=== PATIENT | female | born 1930 | race Caucasian/White ===

== ENCOUNTER → 2016-10-06 | Outpatient (CLI) | payer MEDICARE, BC ==
[2016-10-06 08:52] LABS: Basophils # (A) 0.1 k/uL (0-0.2); Basophils % (A) 1 %; CH 28.2; CHCM 32.8; Eosinophils # (A) 0.3 k/uL (0-0.7); Eosinophils % (A) 4 %; HCT 45.3 % (34.0-46.0); HDW 2.38; Luc # (Auto) 0.16; Luc % (Auto) 2; Lymphocytes # (A) 2.5 k/uL (1.0-4.8); Lymphocytes % (A) 37 %; MCH 28.6 pg (25.0-35.0); MCHC 33.1 g/dL (31.0-37.0); MCV 86.5 fL (80.0-100.0); Mean Platelet Volume 6.7; Monocytes # (A) 0.3 k/uL (0-1.0); Monocytes % (A) 4 %; Neutrophils # (A) 3.5 k/uL (1.3-7.7); Neutrophils % (A) 51 %; RBC 5.24 m/uL (3.80-5.40); RDW 12.7 % (11.5-15.5); WBC 6.9 k/uL (3.8-10.6); WBC (Perox) 7.02
[2016-10-06 09:15] LABS: ALT 19 U/L (9-52); AST 21 U/L (14-36); Alkaline Phosphatase 63 U/L (38-126); Anion Gap 8 mmol/L; Blood Urea Nitrogen 18 mg/dL (7-17); Calcium 9.3 mg/dL (8.4-10.2); Carbon Dioxide 29 mmol/L (22-30); Chloride 104 mmol/L (98-107); Cholesterol 194 mg/dL (<200); Glucose 83 mg/dL (74-99); HDL Cholesterol 78 mg/dL (40-60); Non-African American GFR(MDRD) >60 (>60 ml/min/1.73 sqM); Potassium 4.1 mmol/L (3.5-5.1); Sodium 141 mmol/L (137-145); Total Bilirubin 0.5 mg/dL (0.2-1.3); Total Protein 6.7 g/dL (6.3-8.2); Triglycerides 90 mg/dL (<150)
== END | disposition home or self-care (01) ==
LOC: LABWHC1 08:31
PROVIDERS: ATTEND Internal Medicine
DX: E78.5 Hyperlipidemia, unspecified (principal)
CPT/HCPCS: 36415; 80053; 80061; 84439; 84443; 85025

== ENCOUNTER → 2017-03-18 | Outpatient (CLI) | payer MEDICARE, BC ==
[2017-03-18 15:51] LABS: Basophils % (A) 0 %; Eosinophils # (A) 0.2 k/uL (0-0.7); Eosinophils % (A) 2 %; HCT 47.5 % (34.0-46.0); Lymphocytes # (A) 2.5 k/uL (1.0-4.8); Lymphocytes % (A) 20 %; MCH 28.1 pg (25.0-35.0); MCHC 31.6 g/dL (31.0-37.0); Mean Platelet Volume 7.2; Monocytes # (A) 0.6 k/uL (0-1.0); Monocytes % (A) 5 %; Neutrophils # (A) 9.1 k/uL (1.3-7.7); Neutrophils % (A) 72 %; Platelet Count 313 k/uL (150-450); RBC 5.34 m/uL (3.80-5.40); RDW 13.2 % (11.5-15.5); WBC 12.6 k/uL (3.8-10.6)
[2017-03-18 16:02] LABS: ALT 20 U/L (9-52); AST 28 U/L (14-36); Alkaline Phosphatase 63 U/L (38-126); Anion Gap 11 mmol/L; Blood Urea Nitrogen 24 mg/dL (7-17); Calcium 9.6 mg/dL (8.4-10.2); Carbon Dioxide 28 mmol/L (22-30); Chloride 100 mmol/L (98-107); Glucose 86 mg/dL (74-99); Sodium 139 mmol/L (137-145); Total Bilirubin 0.9 mg/dL (0.2-1.3); Total Protein 7.4 g/dL (6.3-8.2)
[2017-03-18 16:18] LABS: T4, Free (Free Thyroxine) 1.08 ng/dL (0.78-2.19)
[2017-03-18 16:35] LABS: Potassium 5.6 mmol/L (3.5-5.1)
[2017-03-18 16:48] LABS: Erythrocyte Sedimentation Rate 11 mm/hr (0-20)
== END | disposition home or self-care (01) ==
LOC: LABWHC1 14:57
PROVIDERS: ATTEND Internal Medicine
DX: R53.1 Weakness (principal)
CPT/HCPCS: 36415; 80053; 82607; 84439; 84443; 85025; 85652; 99214

== ENCOUNTER → 2017-03-23 | Outpatient (CLI) | payer MEDICARE, BC ==
--- NOTE | 2017-03-23 08:30 | CT ---
EXAMINATION TYPE: CT chest wo con DATE OF EXAM: 03/23/2017 COMPARISON: High-resolution CT o chest April 21, 2012. Older chest CT May 12, 2010.. Most recent x -ray March 18, 2017 HISTORY: Right lower lobe pneumonia per order. Abnormal x-ray CT DLP: 592.30 mGycm. Automated Exposure Control for Dose Reduction was Utilized. TECHNIQUE: CT scan of the thorax is performed without IV contrast. High-resolution protocol with 1 m m sequences obtained at 10 mm intervals in supine and prone technique. FINDINGS: LUNGS: Some patchy reticulonodular fibrosis and/or less likely infiltrate with mild bronchiectasis in volving the inferior right middle lobe and inferior right lower lobe. There is less prominent but add itional reticular and reticulonodular fibrosis and/or less likely infiltrates in the periphery of the left lung base. Mild bronchiectasis centrally is also present at this level. Overall no significant progression from April 2012 study. No pleural effusion or pneumothorax is seen bilaterally. Upper lungs are clear. Scattered small subce ntimeter nodules are felt present. Evaluation for subcentimeter nodules is suboptimal due to techniqu e. MEDIASTINUM: Lack of IV contrast is noted to limit evaluation for mediastinal and especially hilar ad enopathy. There are no definitive greater than 1 cm hilar or mediastinal lymph nodes. No cardiomega ly or pericardial effusion is seen. OTHER: A moderate size hiatal hernia is redemonstrated. IMPRESSION: Right greater than left bibasilar findings are not significantly changed from 2013 CT. Fa vor product of chronic aspiration or remote atypical infection. No convincing evidence for acute pulm onary process currently.
== END | disposition home or self-care (01) ==
LOC: RADCTMAIN 07:07
PROVIDERS: ATTEND Internal Medicine
DX: J18.1 Lobar pneumonia, unspecified organism (principal); J47.1 Bronchiectasis with (acute) exacerbation; Z88.0 Allergy status to penicillin
CPT/HCPCS: 71250

== ENCOUNTER 2018-03-07 14:05 | Observation (INO) | payer MEDICARE, BC ==
[2018-03-07 14:15] LABS: Glucose,Whole Blood 82 mg/dL (75-99)
[2018-03-07] MEDS ORDERED: SODIUM CHLORIDE 0.9% 500 ML 500 ML IV STA (14:18)
--- NOTE | 2018-03-07 14:22 | ED ---
General Adult HPI - General Stated complaint: poss cva Time Seen by Provider: 03/07/18 14:08 - History of Present Illness Initial comments: 87-year-old female patient with past medical history significant for intracranial hemorrhage, hypertension and presents to the emergency department today for evaluation of slurred speech and right-sided facial droop. Patient states that she was interacting with her family when suddenly her speech became slurred, the right side of her tongue became numb, and family members reported that her face was drooping. This occurred at 1345 He states this lasted for one to 2 minutes only and then resolved. Patient states she is currently feeling asymptomatic. She has no headache, blurred vision, double vision, dizziness, weakness. Patient states that her extremities did feel weak during the episode. States that she has been sick with upper respiratory symptoms for the last couple of weeks. States she has had a productive cough. She denies any shortness of breath or chest pain with this. She denies any fevers or chills. Patient denies any recent rash, abdominal pain, nausea, vomiting, diarrhea, constipation, back pain, hematuria, dysuria, urinary urgency, urinary frequency , or any other complaints. - Related Data Home Medications Medication Instructions Recorded Confirmed Aspirin 81 mg PO HS 04/11/17 03/07/18 Biotin 5 mg PO HS 04/11/17 03/07/18 PARoxetine [Paxil] 20 mg PO HS 04/11/17 03/07/18 Losartan Potassium 50 mg PO HS 03/07/18 03/07/18 Allergies Allergy/AdvReac Type Severity Reaction Status Date / Time doxycycline Allergy Anaphylaxis Verified 03/07/18 14:41 Penicillins Allergy Swelling Verified 03/07/18 14:41 Review of Systems ROS Statement: Those systems with pertinent positive or pertinent negative responses have been documented in the HPI. ROS Other: All systems not noted in ROS Statement are negative. Past Medical History Past Medical History: Cancer, Hypertension, Pneumonia Additional Past Medical History / Comment(s): repeated pneumonia,hiatal hernia, steroids Mar 2017,diverticulitis,melanoma History of Any Multi-Drug Resistant Organisms: None Reported Past Surgical History: Bowel Resection, Cholecystectomy, Hysterectomy Additional Past Surgical History / Comment(s): brain bleed repair,rt mastoidectomy-r/t repeated ear infections Past Anesthesia/Blood Transfusion Reactions: No Reported Reaction Past Psychological History: Anxiety Smoking Status: Former smoker Past Alcohol Use History: None Reported Additional Past Alcohol Use History / Comment(s): quit smoking 1979,smoked approx 40 yrs 1ppd Past Drug Use History: None Reported General Exam General appearance: alert, in no apparent distress, other (Physical well- developed, well-nourished elderly female patient in no acute distress.) Eye exam: Present: normal appearance, PERRL, EOMI. Absent: scleral icterus, conjunctival injection, nystagmus, periorbital swelling ENT exam: Present: normal exam, normal oropharynx, mucous membranes moist Respiratory exam: Present: normal lung sounds bilaterally. Absent: respiratory distress, wheezes, rales, rhonchi, stridor Cardiovascular Exam: Present: regular rate, normal rhythm, normal heart sounds. Absent: systolic murmur, diastolic murmur, rubs, gallop, clicks GI/Abdominal exam: Present: soft, normal bowel sounds. Absent: distended, tenderness, guarding, rebound, rigid Neurological exam: Present: alert, oriented X3, CN II-XII intact Expanded Speech: Present: fluid speech Cranial nerves: EOM's Intact: Normal, Tongue Deviation: Normal, Nystagmus: Normal Upper motor neuron: Pronator Drift: Normal Motor strength exam: RUE: 5, LUE: 5, RLE: 5, LLE: 5 Eye Response: (4) open spontaneously Motor Response: (6) obeys commands Verbal Response: (5) oriented [place] Total: 15 Psychiatric exam: Present: normal affect, normal mood Skin exam: Present: warm, dry, intact, normal color. Absent: rash Course Vital Signs 03/07/18 03/07/18 03/07/18 14:07 14:08 14:30 Temperature 98.2 F Pulse Rate 88 85 80 Respiratory 18 18 18 Rate Blood Pressure 170/105 170/105 170/105 O2 Sat by Pulse 95 96 97 Oximetry 03/07/18 03/07/18 15:00 15:30 Temperature Pulse Rate 80 74 Respiratory 19 18 Rate Blood Pressure 163/73 151/73 O2 Sat by Pulse 96 97 Oximetry EKG Findings - EKG Comments: EKG Findings:: EKG obtained at 1412 shows normal sinus rhythm with a ventricular rate of 88, CA interval 140, QRS duration 80, QT 360, QTC 435. No evidence of ST elevation or depression. Medical Decision Making - Medical Decision Making 87-year-old female patient presented to the emergency department today after having an episode of right-sided facial droop, slurred speech, and right-sided tongue numbness. Physical examination upon arrival was unremarkable. Patient is neurologically intact with no focal deficits. Labs reviewed and are unremarkable. EKG showed normal sinus rhythm. CT brain was negative for any evidence of acute intracranial abnormality. Did discuss findings and results with the patient. Given symptoms concerning for transient ischemic attack will admit for further evaluation and consultation with cardiology. Patient verbalizes understanding and agrees with this plan. - Lab Data Result diagrams: 03/07/18 14:21 03/07/18 14:21 Lab Results 03/07/18 03/07/18 03/07/18 Range/Units 14:14 14:21 14:21 WBC 6.4 (3.8-10.6) k/uL RBC 5.11 (3.80-5.40) m/uL Hgb 14.3 (11.4-16.0) gm/dL Hct 43.5 (34.0-46.0) % MCV 85.2 (80.0-100.0) fL MCH 27.9 (25.0-35.0) pg MCHC 32.8 (31.0-37.0) g/dL RDW 13.7 (11.5-15.5) % Plt Count 265 (150-450) k/uL Neutrophils % 55 % Lymphocytes % 34 % Monocytes % 6 % Eosinophils % 3 % Basophils % 1 % Neutrophils # 3.5 (1.3-7.7) k/uL Lymphocytes # 2.2 (1.0-4.8) k/uL Monocytes # 0.4 (0-1.0) k/uL Eosinophils # 0.2 (0-0.7) k/uL Basophils # 0.1 (0-0.2) k/uL PT (9.0-12.0) sec INR (<1.2) APTT (22.0-30.0) sec Sodium (137-145) mmol/L Potassium (3.5-5.1) mmol/L Chloride (98-107) mmol/L Carbon Dioxide (22-30) mmol/L Anion Gap mmol/L BUN (7-17) mg/dL Creatinine (0.52-1.04) mg/dL Est GFR (CKD-EPI)AfAm (>60 ml/min/1.73 sqM) Est GFR (CKD-EPI)NonAf (>60 ml/min/1.73 sqM) Glucose (74-99) mg/dL POC Glucose (mg/dL) 82 (75-99) mg/dL POC Glu Model Builder Display Hina Wallace Calcium (8.4-10.2) mg/dL Total Bilirubin (0.2-1.3) mg/dL AST (14-36) U/L ALT (9-52) U/L Alkaline Phosphatase (38-126) U/L Total Creatine Kinase 32 (30-135) U/L CK-MB (CK-2) 0.3 (0.0-2.4) ng/mL CK-MB (CK-2) Rel Index 0.9 Troponin I <0.012 (0.000-0.034) ng/mL Total Protein (6.3-8.2) g/dL Albumin (3.5-5.0) g/dL 03/07/18 03/07/18 Range/Units 14:21 15:05 WBC (3.8-10.6) k/uL RBC (3.80-5.40) m/uL Hgb (11.4-16.0) gm/dL Hct (34.0-46.0) % MCV (80.0-100.0) fL MCH (25.0-35.0) pg MCHC (31.0-37.0) g/dL RDW (11.5-15.5) % Plt Count (150-450) k/uL Neutrophils % % Lymphocytes % % Monocytes % % Eosinophils % % Basophils % % Neutrophils # (1.3-7.7) k/uL Lymphocytes # (1.0-4.8) k/uL Monocytes # (0-1.0) k/uL Eosinophils # (0-0.7) k/uL Basophils # (0-0.2) k/uL PT 9.8 (9.0-12.0) sec INR 0.9 (<1.2) APTT 20.9 L (22.0-30.0) sec Sodium 140 (137-145) mmol/L Potassium 4.2 (3.5-5.1) mmol/L Chloride 103 (98-107) mmol/L Carbon Dioxide 29 (22-30) mmol/L Anion Gap 8 mmol/L BUN 13 (7-17) mg/dL Creatinine 0.90 (0.52-1.04) mg/dL Est GFR (CKD-EPI)AfAm 67 (>60 ml/min/1.73 sqM) Est GFR (CKD-EPI)NonAf 58 (>60 ml/min/1.73 sqM) Glucose 93 (74-99) mg/dL POC Glucose (mg/dL) (75-99) mg/dL POC Glu Model Builder Display ID Calcium 9.5 (8.4-10.2) mg/dL Total Bilirubin 0.5 (0.2-1.3) mg/dL AST 22 (14-36) U/L ALT 16 (9-52) U/L Alkaline Phosphatase 70 (38-126) U/L Total Creatine Kinase (30-135) U/L CK-MB (CK-2) (0.0-2.4) ng/mL CK-MB (CK-2) Rel Index Troponin I (0.000-0.034) ng/mL Total Protein 7.0 (6.3-8.2) g/dL Albumin 3.9 (3.5-5.0) g/dL - Radiology Data Radiology results: report reviewed, image reviewed Two-view x-ray of the chest is obtained. Report was reviewed in its entirety. Impression by Dr. Tee shows lingula and right middle lobe pleural pulmonary scarring without change compared to old exam. Normal heart. CT brain without contrast was obtained. Report reviewed in its entirety. Impression by Dr. Tee shows cerebral atrophy. No acute intracranial abdomen. No change. Disposition Clinical Impression: TIA (transient ischemic attack) Disposition: ADMITTED IP TO THIS [facility] Condition: Serious Referrals: Romel Otto MD [STAFF PHYSICIAN] - 1-2 days Decision to Admit Reason: Admit from EC Decision Date: 03/07/18 Decision Time: 16:00
[2018-03-07 14:34] LABS: Basophils # (A) 0.1 k/uL (0-0.2); Basophils % (A) 1 %; Eosinophils # (A) 0.2 k/uL (0-0.7); Eosinophils % (A) 3 %; HCT 43.5 % (34.0-46.0); HGB 14.3 gm/dL (11.4-16.0); Lymphocytes # (A) 2.2 k/uL (1.0-4.8); Lymphocytes % (A) 34 %; MCH 27.9 pg (25.0-35.0); MCHC 32.8 g/dL (31.0-37.0); MCV 85.2 fL (80.0-100.0); Mean Platelet Volume 7.1; Monocytes # (A) 0.4 k/uL (0-1.0); Monocytes % (A) 6 %; Neutrophils # (A) 3.5 k/uL (1.3-7.7); Neutrophils % (A) 55 %; Platelet Count 265 k/uL (150-450); RBC 5.11 m/uL (3.80-5.40); RDW 13.7 % (11.5-15.5); WBC 6.4 k/uL (3.8-10.6)
[2018-03-07 14:42] LABS: Albumin 3.9 g/dL (3.5-5.0); Calcium 9.5 mg/dL (8.4-10.2); Potassium 4.2 mmol/L (3.5-5.1); Total Bilirubin 0.5 mg/dL (0.2-1.3)
[2018-03-07 14:56] LABS: Creatine Kinase 32 U/L (30-135)
--- NOTE | 2018-03-07 14:56 | CT ---
EXAMINATION TYPE: CT brain wo con for TPA DATE OF EXAM: 03/07/2018 COMPARISON: April 17, 2013 HISTORY: Right sided tounge numbness CT DLP: 1079.4 mGycm Automated exposure control for dose reduction was used. FINDINGS: There is cerebral cortical atrophy. There is no mass effect nor midline shift. There is no sign of in tracranial hemorrhage. The calvarium is intact. IMPRESSION: CEREBRAL ATROPHY. NO ACUTE INTRACRANIAL ABNORMALITY. NO CHANGE.
--- NOTE | 2018-03-07 15:00 | XR ---
EXAMINATION TYPE: XR chest 2V DATE OF EXAM: 03/07/2018 COMPARISON: 02/10/2018 HISTORY: Weakness TECHNIQUE: Frontal and lateral views of the chest are obtained. FINDINGS: There is no heart failure. Heart size is normal. There is no pleural effusion. There is so me pleural thickening involving the lingula left upper lobe and the right middle lobe anteriorly. Bon y thorax is intact. There is osteopenia. There are chest leads. IMPRESSION: Lingula and right middle lobe pleural and pulmonary scarring without change compared to old exam. Normal heart.
[2018-03-07 15:09] LABS: Creatine Kinase MB 0.3 ng/mL (0.0-2.4); Troponin I <0.012 ng/mL (0.000-0.034)
[2018-03-07 15:33] LABS: INR 0.9 (<1.2); Partial Thromboplastin Time 20.9 sec (22.0-30.0); Prothrombin Time 9.8 sec (9.0-12.0)
[2018-03-07] MEDS ORDERED: ASPIRIN 325 MG TAB PO STA (15:52)
[2018-03-07 15:58] LABS: Appearance,Urine Clear (Clear); Bacteria,Urine Rare /hpf; Bilirubin,Urine Negative (Negative); Blood,Urine Negative (Negative); Color,Urine Yellow; Glucose,Urine (UA) Negative (Negative); Ketones,Urine Negative (Negative); Leukocyte Esterase,Urine Trace (Negative); Mucus,Urine Rare /hpf; Nitrite,Urine Negative (Negative); Protein,Urine Negative (Negative); Specific Gravity,Urine 1.006 (1.001-1.035); Urobilinogen,Urine <2.0 mg/dL (<2.0); WBC,Urine 2 /hpf (0-5)
[2018-03-07] MEDS: SODIUM CHLORIDE 0.9% 1,000 ML IV SCH (16:05)
[2018-03-07] MEDS ORDERED: LOSARTAN 50 MG TAB PO STA (18:52)
[2018-03-07] MEDS: ENALAPRILAT 1.25 MG/ML 1 ML VIAL IVP PRN (18:59)
[2018-03-07 20:09] VITALS: BMI 29.0
[2018-03-07] MEDS: LOSARTAN 50 MG TAB PO SCH (21:06)
--- NOTE | 2018-03-07 21:22 | P.CNNES ---
History of Present Illness Consult date: 03/07/18 History of Present Illness: The patient is a 87-year-old woman who was in her usual state of health until this afternoon around 1 PM while opening gets with her grandchildren she experienced slurred speech as well as tongue numbness on the right side of her tongue as well as right facial droop. This all lasted about 1 minute. She denied any focal weakness in the arms and legs, or any visual changes. She states she is just gotten over upper respiratory infection and is felt fatigued and tired since then. The patient was admitted to the hospital for TIA. He had a CAT scan of the brain which showed cerebral atrophy. Review of Systems All systems: negative Constitutional: Denies chills, Denies fever Eyes: denies blurred vision, denies pain Cardiovascular: Denies chest pain, Denies shortness of breath Respiratory: Denies cough Gastrointestinal: Denies abdominal pain, Denies diarrhea, Denies nausea, Denies vomiting Musculoskeletal: Denies myalgias Neurological: Denies numbness, Denies weakness Psychiatric: Denies anxiety, Denies depression Past Medical History Past Medical History: Cancer, Hypertension, Pneumonia Additional Past Medical History / Comment(s): repeated pneumonia,hiatal hernia, steroids Mar 2017,diverticulitis,melanoma History of Any Multi-Drug Resistant Organisms: None Reported Past Surgical History: Bowel Resection, Cholecystectomy, Hysterectomy Additional Past Surgical History / Comment(s): brain bleed repair,rt mastoidectomy-r/t repeated ear infections Past Anesthesia/Blood Transfusion Reactions: No Reported Reaction Past Psychological History: Anxiety Smoking Status: Former smoker Past Alcohol Use History: None Reported Additional Past Alcohol Use History / Comment(s): quit smoking 1979,smoked approx 40 yrs 1ppd Past Drug Use History: None Reported Medications and Allergies Home Medications Medication Instructions Recorded Confirmed Type Aspirin 81 mg PO HS 04/11/17 03/07/18 History Biotin 5 mg PO HS 04/11/17 03/07/18 History PARoxetine [Paxil] 20 mg PO HS 04/11/17 03/07/18 History Losartan Potassium 50 mg PO HS 03/07/18 03/07/18 History Allergies Allergy/AdvReac Type Severity Reaction Status Date / Time doxycycline Allergy Anaphylaxis Verified 03/07/18 14:41 Penicillins Allergy Swelling Verified 03/07/18 14:41 Physical Examination - Vital Signs Vital Signs: Vital Signs Temp Pulse Pulse Resp BP BP Pulse Ox 03/07/18 20:00 98.5 F 88 15 228/101 95 03/07/18 19:05 98.4 F 85 18 187/95 97 03/07/18 18:30 86 18 181/92 97 03/07/18 18:00 75 19 177/88 03/07/18 17:30 88 18 168/77 96 03/07/18 17:00 79 18 172/77 96 03/07/18 16:30 76 18 171/85 97 03/07/18 16:00 82 18 166/86 96 03/07/18 15:30 74 18 151/73 97 03/07/18 15:00 80 19 163/73 96 03/07/18 14:30 80 18 170/105 97 03/07/18 14:08 85 18 170/105 96 03/07/18 14:07 98.2 F 88 18 170/105 95 Intake and Output 03/07/18 03/07/18 03/07/18 06:59 14:59 22:59 Other: Weight 81.647 kg 84.141 kg - Constitutional General appearance: average body habitus, cooperative - EENT EENT: PERRL - Respiratory Respiratory: lungs clear - Cardiovascular Cardiovascular: regular rate, normal S1, normal S2 - Neurologic Neurologic examination: Mental status: She was awake alert and oriented 3. Her speech is fluent. There was no a aphasia or dysarthria. Cranial nerve examination: Cranial nerves II through XII grossly intact Motor examination: 5 out of 5 throughout Sensory examination: Intact Deep tendon reflexes: Intact X Coordination: Finger to nose intact Gait: Not tested Results - Laboratory Findings CBC and BMP: 03/07/18 14:21 03/07/18 14:21 Abnormal Lab Findings: Abnormal Labs 03/07/18 03/07/18 15:05 15:25 APTT 20.9 L Ur Leukocyte Esterase Trace H Urine Bacteria Rare H Urine Mucus Rare H Assessment and Plan (1) TIA (transient ischemic attack) Current Visit: Yes Status: Acute Code(s): G45.9 - TRANSIENT CEREBRAL ISCHEMIC ATTACK, UNSPECIFIED SNOMED Code(s): 775330645 Plan: The patient is a 87-year-old woman who presents to the emergency room with slurred speech and right facial droop which lasted for less than a minute. She also experienced tongue numbness. The patient may have had a TIA. She has been taking her baby aspirin daily. Recommend further evaluation with carotid ultrasound and echocardiogram. Recommend Plavix in addition to baby aspirin. The patient had a CAT scan of the brain in the emergency room which showed atrophy.
[2018-03-07] MEDS: PARoxetine 20 MG TAB PO SCH (22:21)
[2018-03-08] MEDS: ENALAPRILAT 1.25 MG/ML 1 ML VIAL IVP PRN (00:57)
[2018-03-08 07:12] LABS: Cholesterol 243 mg/dL (<200); HDL Cholesterol 54 mg/dL (40-60); LDL Cholesterol,Calculated 171 mg/dL (0-99); Triglycerides 92 mg/dL (<150)
[2018-03-08] MEDS: PARoxetine 20 MG TAB PO SCH (08:08)
[2018-03-08] MEDS: SODIUM CHLORIDE 0.9% 1,000 ML IV SCH (08:08)
[2018-03-08] MEDS: LOSARTAN 50 MG TAB PO SCH (08:08)
--- NOTE | 2018-03-08 08:47 | US ---
EXAMINATION TYPE: US carotid duplex BILAT DATE OF EXAM: 03/08/2018 COMPARISON: Carotid ultrasound 2010 CLINICAL HISTORY: TIA. Admitted for neuro deficits yesterday. EXAM MEASUREMENTS: RIGHT: Peak Systolic Velocity (PSV) cm/sec ----- Right CCA: 70.5 ----- Right ICA: 103.7 ----- Right ECA: 85.1 ICA/CCA ratio: 1.5 RIGHT: End Diastole cm/sec ----- Right CCA: 19.1 ----- Right ICA: 26.5 ----- Right ECA: 0.0 LEFT: Peak Systolic Velocity (PSV) cm/sec ----- Left CCA: 61.4 ----- Left ICA: 203.5 ----- Left ECA: 162.0 ICA/CCA ratio: 3.3 LEFT: End Diastole cm/sec ----- Left CCA: 14.2 ----- Left ICA: 40.9 ----- Left ECA: 29.6 VERTEBRALS (direction of flow): Right Vertebral: Antegrade Left Vertebral: Antegrade Rhythm: Normal Grayscale images show moderate eccentric hyperechoic plaque at right carotid bulbs similar to prior. There is more severe eccentric hyperechoic plaque at left carotid bulb on current study with increase d peak systolic and end-diastolic velocity in the left internal carotid artery, abnormal ratio is not ed. IMPRESSION: Moderate to severe. Atherosclerotic change bilaterally, left greater than right, with he mostatically significant stenosis now suspected on the left, degree of stenosis is estimated 50-69%. Further investigation with CTA or MRA of the neck to be performed to further evaluate and characteriz e . Criteria for Assigning % of Stenosis / Diameter reduction (Estimation based on the indirect measurements of the internal carotid artery velocities (ICA PSV). 1. Normal (no stenosis)=ICA PSV < 125 cm/s: ratio < 2.0: ICA EDV<40 cm/s. 2. Less than 50% stenosis=ICA PSV < 125 cm/s: ratio < 2.0: ICA EDV<40 cm/s. 3. 50 to 69% stenosis=ICA PSV of 125 to 230 cm/s: ration 2.0 ? 4.0: ICA EDV 40-100 cm/s. 4. Greater than 70% stenosis to near occlusion= ICA PSV > 230 cm/s: ratio > 4.0: ICA EDV > 100 cm/s. 5. Near occlusion= ICA PSV velocities may be low or undetectable: variable ratio and ICA EDV. 6. Total occlusion=unable to detect flow.
[2018-03-08] MEDS ORDERED: ASPIRIN 325 MG TAB PO SCH (09:00)
[2018-03-08] MEDS ORDERED: CLOPIDOGREL 75 MG TAB PO SCH (09:00)
[2018-03-08 10:06] VITALS: TEMP 97.6
--- NOTE | 2018-03-08 10:22 | ECHOF ---
Referral Reason:TIA MEASUREMENTS -------- HEIGHT: 170.2 cm WEIGHT: 83.0 kg BP: 152/70 IVSd: 1.2 cm (0.6 - 1.1) LVIDd: 2.7 cm (3.9 - 5.3) LVPWd: 1.4 cm (0.6 - 1.1) IVSs: 1.6 cm LVIDs: 1.7 cm LVPWs: 1.7 cm LAESV Index (A-L): 24.14 ml/m Ao Diam: 3.0 cm (2.0 - 3.7) AV Cusp: 1.4 cm (1.5 - 2.6) LA Diam: 3.4 cm (2.7 - 3.8) MV EXCURSION: 12.842 mm (> 18.000) MV EF SLOPE: 73 mm/s (70 - 150) EPSS: 0.5 cm MV E Josh: 0.99 m/s MV DecT: 189 ms MV A Josh: 1.14 m/s MV E/A Ratio: 0.86 RAP: 5.00 mmHg RVSP: 11.51 mmHg FINDINGS -------- Sinus rhythm. This was a technically good study. The left ventricular size is normal. There is mild concentric left ventricular hypertrophy. Overa ll left ventricular systolic function is normal with, an EF between 55 - 60 %. The right ventricle is normal in size and function. The left atrium is normal in size. The right atrium is normal in size. The aortic valve is trileaflet and appears structurally normal. The mitral valve leaflets are mildly thickened. There is trace mitral regurgitation. Trace tricuspid regurgitation present. The right ventricular systolic pressure, as measured by Dopp ler, is 11.51mmHg. Pulmonic valve appears structurally normal. The aortic root size is normal. Normal inferior vena cava with normal inspiratory collapse consistent with estimated right atrial pre ssure of 5 mmHg. The pericardium is normal. CONCLUSIONS -------- 1. Sinus rhythm. 2. This was a technically good study. 3. The left ventricular size is normal. 4. There is mild concentric left ventricular hypertrophy. 5. Overall left ventricular systolic function is normal with, an EF between 55 - 60 %. 6. The right ventricle is normal in size and function. 7. The left atrium is normal in size. 8. The right atrium is normal in size. 9. The aortic valve is trileaflet and appears structurally normal. 10. The mitral valve leaflets are mildly thickened. 11. There is trace mitral regurgitation. 12. Trace tricuspid regurgitation present. 13. The right ventricular systolic pressure, as measured by Doppler, is 11.51mmHg. 14. Pulmonic valve appears structurally normal. 15. The aortic root size is normal. 16. Normal inferior vena cava with normal inspiratory collapse consistent with estimated right atrial pressure of 5 mmHg. 17. The pericardium is normal. MEDICAL TECHNICIANS: Erendira Dubose RDCS
--- NOTE | 2018-03-08 12:28 | P.HPIM ---
History of Present Illness 70-year-old female came in with complaints of a numbness in the tongue and facial droop on the right side which resolved and within a minute patient denied any headache nausea vomiting fever chills. Patient denied any visual problems or speech problems. Patient had a CAT scan of the brain which showed severe diffuse cerebellar atrophy patient is already aspirin patient was evaluated by neurology although workup for TIA and stroke stroke with an echocardiogram, carotid Doppler which did not show any significant abnormal the patient does have elevated LDL patient is supposed to take started at home which she stopped taking. Patient the will be started on Plavix as recommended by neurology and patient was started on statin patient doesn't have any residual weakness will not require any physical therapy at home or rehabilitation. Patient is not a smoker. Patient will be discharged today. Review of Systems REVIEW OF SYSTEMS: CONSTITUTIONAL: No fever, no malaise, no fatigue. HEENT: No recent visual problems or hearing problems. Denied any sore throat. CARDIOVASCULAR: No chest pain, orthopnea, PND, no palpitations, no syncope. PULMONARY: No shortness of breath, no cough, no hemoptysis. GASTROINTESTINAL: No diarrhea, no nausea, no vomiting, no abdominal pain. NEUROLOGICAL: No headaches, no weakness, no numbness. HEMATOLOGICAL: Denies any bleeding or petechiae. GENITOURINARY: Denies any burning micturition, frequency, or urgency. MUSCULOSKELETAL/RHEUMATOLOGICAL: Denies any joint pain, swelling, or any muscle pain. ENDOCRINE: Denies any polyuria or polydipsia. The rest of the 14-point review of systems is negative. Past Medical History Past Medical History: Cancer, Hypertension, Pneumonia Additional Past Medical History / Comment(s): repeated pneumonia,hiatal hernia, steroids Mar 2017,diverticulitis,melanoma History of Any Multi-Drug Resistant Organisms: None Reported Past Surgical History: Bowel Resection, Cholecystectomy, Hysterectomy Additional Past Surgical History / Comment(s): brain bleed repair,rt mastoidectomy-r/t repeated ear infections Past Anesthesia/Blood Transfusion Reactions: No Reported Reaction Past Psychological History: Anxiety Smoking Status: Former smoker Past Alcohol Use History: None Reported Additional Past Alcohol Use History / Comment(s): quit smoking 1979,smoked approx 40 yrs 1ppd Past Drug Use History: None Reported Medications and Allergies Home Medications Medication Instructions Recorded Confirmed Type Aspirin 81 mg PO HS 04/11/17 03/07/18 History Biotin 5 mg PO HS 04/11/17 03/07/18 History PARoxetine [Paxil] 20 mg PO HS 04/11/17 03/07/18 History Losartan Potassium 50 mg PO HS 03/07/18 03/07/18 History Atorvastatin [Lipitor] 40 mg PO HS #30 tablet 03/08/18 Rx Clopidogrel Bisulfate [Plavix] 75 mg PO DAILY #30 tab 03/08/18 Rx Allergies Allergy/AdvReac Type Severity Reaction Status Date / Time doxycycline Allergy Anaphylaxis Verified 03/07/18 14:41 Penicillins Allergy Swelling Verified 03/07/18 14:41 Physical Exam Vitals: Vital Signs Temp Pulse Pulse Resp BP BP Pulse Ox 03/08/18 08:00 97.6 F 78 17 162/78 97 03/08/18 06:45 98.1 F 73 14 152/70 97 03/08/18 04:52 97.2 F L 70 15 151/68 97 03/08/18 03:40 69 15 03/08/18 02:52 97.6 F 69 15 181/81 96 03/08/18 00:52 97.2 F L 69 14 170/74 93 L 03/08/18 00:00 76 15 03/07/18 22:52 98.4 F 76 15 180/79 95 03/07/18 20:00 98.5 F 88 15 228/101 95 03/07/18 19:05 98.4 F 85 18 187/95 97 03/07/18 18:30 86 18 181/92 97 03/07/18 18:00 75 19 177/88 03/07/18 17:30 88 18 168/77 96 03/07/18 17:00 79 18 172/77 96 03/07/18 16:30 76 18 171/85 97 03/07/18 16:00 82 18 166/86 96 03/07/18 15:30 74 18 151/73 97 03/07/18 15:00 80 19 163/73 96 03/07/18 14:30 80 18 170/105 97 03/07/18 14:08 85 18 170/105 96 03/07/18 14:07 98.2 F 88 18 170/105 95 Intake and Output 03/07/18 03/08/18 03/08/18 22:59 06:59 14:59 Intake Total 100 540 Balance 100 540 Intake: Intake, IV Titration 100 Amount Sodium Chloride 0.9% 1, 100 000 ml @ 20 mls/hr IV . Q24H [facility] Rx#:[id number] Oral 540 Other: # Voids 1 Weight 84.141 kg 83.3 kg PHYSICAL EXAMINATION: GENERAL: The patient is alert and oriented x3, not in any acute distress. Well developed, well nourished. HEENT: Pupils are round and equally reacting to light. EOMI. No scleral icterus. No conjunctival pallor. Normocephalic, atraumatic. No pharyngeal erythema. No thyromegaly. CARDIOVASCULAR: S1 and S2 present. No murmurs, rubs, or gallops. PULMONARY: Chest is clear to auscultation, no wheezing or crackles. ABDOMEN: Soft, nontender, nondistended, normoactive bowel sounds. No palpable organomegaly. MUSCULOSKELETAL: No joint swelling or deformity. EXTREMITIES: No cyanosis, clubbing, or pedal edema. NEUROLOGICAL: Gross neurological examination did not reveal any focal deficits. SKIN: No rashes. Results CBC & Chem 7: 03/07/18 14:21 03/07/18 14:21 Labs: Abnormal Lab Results - Last 24 Hours (Table) 03/07/18 03/07/18 03/08/18 Range/Units 15:05 15:25 05:58 APTT 20.9 L (22.0-30.0) sec Cholesterol 243 H (<200) mg/dL LDL Cholesterol, Calc 171 H (0-99) mg/dL Ur Leukocyte Esterase Trace H (Negative) Urine Bacteria Rare H (None) /hpf Urine Mucus Rare H (None) /hpf Thrombosis Risk Factor Assmnt - Choose All That Apply Any of the Below Risk Factors Present?: No Other Risk Factors: No Other congenital or acquired thrombophilia - If yes, enter type in comment: No Thrombosis Risk Factor Assessment Level: Very Low Risk Assessment and Plan Plan: -transient ischemic attack with right facial droop: Symptoms are not resolved at this time patient will be discharged as mentioned above, workup as mentioned above all the workup so far is not significant and will not need any further intervention at this time. Discussed with neurology cleared for discharge. -Hyperlipidemia -Hypertension
--- NOTE | 2018-03-08 12:29 | P.DS ---
Providers Date of admission: 03/07/18 15:49 Attending physician: Melissa Alford Consults: 03/07/18 15:53 Consult Physician Routine Consulting Provider: Suzie Cardenas Consult Reason/Comments: TIA Do you want consulting provider notified?: Yes Primary care physician: Stated None Hospital Course: Please refer to my HPI Patient Condition at Discharge: Serious Plan - Discharge Summary Discharge Rx Participant: Yes New Discharge Prescriptions: New Atorvastatin [Lipitor] 40 mg PO HS #30 tablet Clopidogrel Bisulfate [Plavix] 75 mg PO DAILY #30 tab No Action PARoxetine [Paxil] 20 mg PO HS Aspirin 81 mg PO HS Biotin 5 mg PO HS Losartan Potassium 50 mg PO HS Discharge Medication List Aspirin 81 mg PO HS 04/11/17 [History] Biotin 5 mg PO HS 04/11/17 [History] PARoxetine [Paxil] 20 mg PO HS 04/11/17 [History] Losartan Potassium 50 mg PO HS 03/07/18 [History] Atorvastatin [Lipitor] 40 mg PO HS #30 tablet 03/08/18 [Rx] Clopidogrel Bisulfate [Plavix] 75 mg PO DAILY #30 tab 03/08/18 [Rx] Follow up Appointment(s)/Referral(s): Romel Otto MD [STAFF PHYSICIAN] - 03/20/18 3:15 pm Liane Cardenas MD [STAFF PHYSICIAN] - 1 Week (Office to call back with appointment.) Patient Instructions/Handouts: Transient Ischemic Attack (DC), Heart Healthy Diet (DC), Cholesterol and Your Health (GEN), Safe Use of Antiplatelet Medication (DC) Discharge Disposition: HOME SELF-CARE
[2018-03-08 12:40] VITALS: BP 150/72; PULSE 81; RESP 18
== END 2018-03-08 13:36 | disposition home or self-care (01) ==
LOC: EC 14:05 → 3SCARD 15:49
PROVIDERS: ADMIT Internal Medicine; ATTEND Internal Medicine
DX: G45.9 Transient cerebral ischemic attack, unspecified (principal); R47.81 Slurred speech; R29.810 Facial weakness; I10 Essential (primary) hypertension; E78.5 Hyperlipidemia, unspecified; F41.9 Anxiety disorder, unspecified; Z79.899 Other long term (current) drug therapy; Z79.82 Long term (current) use of aspirin; Z88.1 Allergy status to other antibiotic agents; Z88.0 Allergy status to penicillin; Z79.02 Long term (current) use of antithrombotics/antiplatelets; Z85.820 Personal history of malignant melanoma of skin; Z87.891 Personal history of nicotine dependence; Z90.710 Acquired absence of both cervix and uterus; Z90.49 Acquired absence of other specified parts of digestive tract
CPT/HCPCS: 96376; 96361; 96374; 99285; 36415; 93005; 93306; 97161; 97165; 92522; 80061; 80053; 82550; 82553; 84484; 85025; 85610; 85730; 81001; 71046; 93880; 70450; G0378 ×2

== ENCOUNTER 2018-11-17 18:30 | Emergency (ER) | payer MEDICARE, BC ==
--- NOTE | 2018-11-17 19:14 | ED ---
Extremity Problem HPI - General Source: patient Mode of arrival: ambulatory <Melina Taylor - Last Filed: 11/17/18 23:26> <Cyndi Haywood - Last Filed: 11/21/18 00:17> - General Chief complaint: Extremity Problem,Nontraumatic Stated complaint: poss blood clot Time Seen by Provider: 11/17/18 18:44 - History of Present Illness Initial comments: 88-year-old female patient presents to the emergency department today for evaluation of left calf pain. Patient states last Tuesday she saw as if she is had a charley horse of the calf. States it is swollen and felt hot as well. She denies any recent travel or long car rides. Patient does take Plavix after a stroke in February. Patient denies history of DVT. Denies any chest pain, sh ortness of breath, or palpitations. Patient denies any headache, neck pain, back pain, dizziness, weakness, abdominal pain, nausea, vomiting, or difficulties with bowel movements or urination. (Melina Taylor) I was available for consultation in the emergency department. The history and physical exam was done by the midlevel provider. I was consulted for this patient's care. I reviewed the case with the midlevel provider and based on their presentation of the patient, I agree with the assessment, medical decision making and plan of care as documented. (Cyndi Haywood) - Related Data Home Medications Medication Instructions Recorded Confirmed Aspirin 81 mg PO HS 04/11/17 03/07/18 Biotin 5 mg PO HS 04/11/17 03/07/18 PARoxetine [Paxil] 20 mg PO HS 04/11/17 03/07/18 Losartan Potassium 50 mg PO HS 03/07/18 03/07/18 Previous Rx's Medication Instructions Recorded Atorvastatin [Lipitor] 40 mg PO HS #30 tablet 03/08/18 Clopidogrel Bisulfate [Plavix] 75 mg PO DAILY #30 tab 03/08/18 Allergies Allergy/AdvReac Type Severity Reaction Status Date / Time doxycycline Allergy Anaphylaxis Verified 11/17/18 18:40 Penicillins Allergy Swelling Verified 11/17/18 18:40 Review of Systems ROS Other: All systems not noted in ROS Statement are negative. <Melina Taylor - Last Filed: 11/17/18 23:26> ROS Other: All systems not noted in ROS Statement are negative. <Cyndi Haywood A - Last Filed: 11/21/18 00:17> ROS Statement: Those systems with pertinent positive or pertinent negative responses have been documented in the HPI. Past Medical History Past Medical History: Cancer, CVA/TIA, Hypertension, Pneumonia Additional Past Medical History / Comment(s): repeated pneumonia,hiatal hernia,steroids Mar 2017,diverticulitis,melanoma 1969' History of Any Multi-Drug Resistant Organisms: None Reported Past Surgical History: Bowel Resection, Cholecystectomy, Hysterectomy Additional Past Surgical History / Comment(s): brain bleed repair,rt mastoidectomy-r/t repeated ear infections Past Anesthesia/Blood Transfusion Reactions: No Reported Reaction Past Psychological History: Anxiety Smoking Status: Former smoker Past Alcohol Use History: None Reported Past Drug Use History: None Reported <Melina Taylor M - Last Filed: 11/17/18 23:26> General Exam General appearance: alert, in no apparent distress, other (This is a well- developed, well-nourished elderly female patient in no acute distress. Vital signs upon presentation are temperature 97.8F, pulse 95, respirations 18, blood pressure 136/68, pulse ox 95% on room air.) Respiratory exam: Present: normal lung sounds bilaterally. Absent: respiratory distress, wheezes, rales, rhonchi, stridor Cardiovascular Exam: Present: regular rate, normal rhythm, normal heart sounds. Absent: systolic murmur, diastolic murmur, rubs, gallop, clicks GI/Abdominal exam: Present: soft, normal bowel sounds. Absent: distended, tenderness, guarding, rebound, rigid Extremities exam: Present: full ROM, tenderness (Left calf tenderness), normal capillary refill, other (Left calf swelling. Nonpitting. Pedal and posttibial pulses are 2+ and equal bilaterally.). Absent: normal inspection, pedal edema, joint swelling, calf tenderness Neurological exam: Present: alert, oriented X3, CN II-XII intact Psychiatric exam: Present: normal affect, normal mood Skin exam: Present: warm, dry, intact, normal color. Absent: rash <Melina Taylor M - Last Filed: 11/17/18 23:26> Course Vital Signs 11/17/18 11/17/18 18:36 20:25 Temperature 97.8 F 97.9 F Pulse Rate 95 82 Respiratory 18 17 Rate Blood Pressure 136/68 130/72 O2 Sat by Pulse 95 98 Oximetry Medical Decision Making - Radiology Data Radiology results: report reviewed <Melina Taylro - Last Filed: 11/17/18 23:26> - Medical Decision Making 88-year-old female patient presented to the emergency department today for evaluation of pain, swelling, and warmth to the left upper calf. Physical examination did reveal nonpitting edema. Neurovascular status is intact, pedal and posttibial pulses are intact. Ultrasound was obtained and showed evidence for a hematoma but no DVT. I did discuss findings and results with patient. We'll place Levon wrap for compression and support. She is instructed to follow- up with ultrasound specialist for further evaluation. Return parameters discussed in detail. She verbalizes understanding and agrees this plan. (Melina Taylor) - Radiology Data Venous Doppler duplex of the left lower extremities was obtained. Report was reviewed in its entirety. Impression by Dr. Tee shows no evidence of deep venous some process. Elongated complex mass on the upper calf is consistent with a hematoma (Melina Taylor) Disposition Is patient prescribed a controlled substance at d/c from ED?: No Time of Disposition: 19:48 <Melina Taylor - Last Filed: 11/17/18 23:26> <Cyndi Haywood - Last Filed: 11/21/18 00:17> Clinical Impression: Hematoma of left lower extremity Disposition: HOME SELF-CARE Condition: Good Instructions (If sedation given, give patient instructions): Hematoma (ED) Additional Instructions: Use levon wrap for comfort and support. Apply ice to the area. Follow up with the primary care physician for recheck in 1-2 days. Return to the emergency department for any new, worsening, or concerning symptoms. Referrals: Sheri Louis MD [Primary Care Provider] - 1-2 days Andriy Lopes DO [Medical Doctor] - 1-2 days
--- NOTE | 2018-11-17 19:37 | US ---
EXAMINATION TYPE: US venous doppler duplex LE LT DATE OF EXAM: 11/17/2018 7:27 PM COMPARISON: NONE CLINICAL HISTORY: Pain. Pain left calf since yesterday, edema left calf, patient on Plavix due to his tory of TIA. Patient denies any trauma to left calf SIDE PERFORMED: Left TECHNIQUE: The lower extremity deep venous system is examined utilizing real time linear array sonog marck with graded compression, doppler sonography and color-flow sonography. VESSELS IMAGED: External Iliac Vein (EIV) Common Femoral Vein Deep Femoral Vein Greater Saphenous Vein * Femoral Vein Popliteal Vein Small Saphenous Vein * Proximal Calf Veins (* superficial vessels) Left Leg: No evidence of DVT. complex anechoic area left upper calf = 7.5 x 1.7 x 3.2cm IMPRESSION: No evidence of deep venous thrombosis. Elongated complex mass in the upper calf is consis tent with a hematoma.
[2018-11-17 20:27] VITALS: BP 130/72; PULSE 82; RESP 17; TEMP 97.9
== END 2018-11-17 20:27 | disposition home or self-care (01) ==
LOC: EC 18:30
DX: S80.12XA Contusion of left lower leg, initial encounter (principal); I10 Essential (primary) hypertension; F41.9 Anxiety disorder, unspecified; Z87.891 Personal history of nicotine dependence; Z88.0 Allergy status to penicillin; Z88.1 Allergy status to other antibiotic agents; Z79.02 Long term (current) use of antithrombotics/antiplatelets; Z79.82 Long term (current) use of aspirin; Z79.899 Other long term (current) drug therapy; Z85.820 Personal history of malignant melanoma of skin; Z86.73 Personal history of transient ischemic attack (TIA), and cerebral infarction without residual deficits; X58.XXXA Exposure to other specified factors, initial encounter
CPT/HCPCS: 99283

== ENCOUNTER → 2019-04-09 | Outpatient (CLI) | payer MEDICARE, BC ==
--- NOTE | 2019-04-09 16:38 | CT ---
EXAMINATION TYPE: CT iac wo con DATE OF EXAM: 04/09/2019 COMPARISON: CT brain March 07, 2018 HISTORY: Cholesteatoma of attic CT DLP: 150 mGycm. Automated Exposure Control for Dose Reduction was Utilized. TECHNIQUE: CT scan of internal auditory canal is performed without contrast, thin cut axial images ar e obtained, coronal reformatted images are also reviewed. FINDINGS: The external auditory canals show persistent right-sided narrowing with deep soft tissue ax ial image 43 thought to reflect cerumen. Left side is patent. Mastoid air cells show new patchy opac ification posterior inferior left mastoid air cells. Surgical change on the right is redemonstrated. The middle ear ossicles are symmetric and thought within normal limits. There is no evidence of new suspicious surrounding soft tissue density to suggest cholesteatoma. The scutum is preserved bilate rally. The cochlea and the semicircular canals are symmetric and unremarkable. Vestibular aqueduct and internal carotid canal appear unremarkable. Temporomandibular joints are maintained bilaterally. Persistent patchy fluid involving the right sphe noid sinus right lateral aspect . Right lens remains calcified IMPRESSION: Right-sided surgical change redemonstrated. No recurrent suspicious middle ear soft tiss ue density.
== END | disposition home or self-care (01) ==
LOC: RADCTMAIN 15:58
PROVIDERS: ATTEND Otolaryngology Otology & Neurotology
DX: H71.91 Unspecified cholesteatoma, right ear (principal)
CPT/HCPCS: 70480